=== PATIENT | female | born 2000 | race Caucasian/White ===

== ENCOUNTER 2019-09-20 10:18 | Observation (INO) ==
[2019-09-20] MEDS ORDERED: ONDANSETRON INJ 2 MG/ML 2 ML VIAL IV STA (10:57)
[2019-09-20] MEDS ORDERED: KETOROLAC TROMETHAMINE 15 MG/ML VIAL IV ONE (10:57)
[2019-09-20] MEDS ORDERED: SODIUM CHLORIDE 0.9% 1000ML 2,000 ML IV ONE (10:57)
[2019-09-20 11:06] LABS: Hematocrit (blood only) 43.7 % (37-47); Mean Corpuscular Hemoglobin 29.5 pg (25-34); Mean Corpuscular Hgb Conc 34.3 g/dL (32-36); Mean Corpuscular Volume 85.9 fL (80-100); Mean Platelet Volume 10.5 fL (7.4-10.4); Platelet Count 363 K/uL (130-400); RDW Coefficient of Variation 13.2 % (11.5-14.5); RDW Standard Deviation 41.8 fL (36.4-46.3); Red Blood Count 5.09 M/uL (4.2-5.4); White Blood Count 24.63 K/uL (4.8-10.8)
[2019-09-20 11:22] LABS: Albumin Level 4.3 gm/dl (3.4-5.0); BUN Creatinine Ratio 13.3 (10-20); Creatinine Clr Calc Pharmacy 112.2 ml/min; Est GFR (African American) 133.9; Est GFR (Non-African American) 115.6; Potassium 3.8 mmol/L (3.5-5.1)
[2019-09-20 11:24] LABS: Basophils # (auto) 0.05 K/uL (0-0.2); Basophils % (auto) 0.2 %; Eosinophils # (auto) 0.22 K/uL (0-0.5); Eosinophils % (auto) 0.9 %; Immature Granulocytes # (auto) 0.07 K/uL (0.00-0.02); Immature Granulocytes % (auto) 0.3 %; Lymphocytes # (auto) 3.45 K/uL (1.2-3.4); Monocytes % (auto) 4.1 %; Neutrophils # (auto) 19.84 K/uL (1.4-6.5); Neutrophils % (auto) 80.5 %
[2019-09-20 11:25] LABS: Albumin Globulin Ratio 1.1 (0.9-2); Bilirubin,Total 0.6 mg/dl (0.2-1); Globulin 3.9 gm/dl (2.5-4.0); Total Protein 8.2 gm/dl (6.4-8.2)
[2019-09-20 12:10] LABS: Appearance Urine Clear (Clear); Bilirubin Urine Negative (Negative); Blood Urine Negative (Negative); Color Urine Yellow; Glucose Urine UA Negative (Negative); Ketones Urine Trace (Negative); Leukocyte Esterase Urine Negative (Negative); Nitrite Urine Negative (Negative); Protein Urine Negative (Negative); Specific Gravity Urine 1.021 (1.000-1.030); Urobilinogen Urine Negative (Negative); pH Urine 5.5 (4.5-7.5)
[2019-09-20] MEDS ORDERED: IOVERSOL 100ml IV PRN (12:10)
--- NOTE | 2019-09-20 12:36 | CT Scan Report ---
CT abd pelvis IV con only CLINICAL HISTORY: Epigastric and right lower quadrant abdominal pain. COMPARISON STUDY: None. TECHNIQUE: The patient was scanned in a dynamic helical fashion during intravenous administration of 94 cc of Optiray 320 A dose lowering technique was utilized adhering to the principles of ALARA. CT DOSE: 363.10 mGycm FINDINGS: Lower chest: There are minimal dependent atelectatic changes Liver: The contrast-enhanced liver is normal in size, contour, and attenuation. There is no intrahepa tic biliary ductal dilatation. The hepatic veins and portal veins are patent. Gallbladder: Unremarkable. Spleen: Normal in size and attenuation. Pancreas: Unremarkable. Adrenal glands: Unremarkable. Kidneys: There is symmetric renal cortical enhancement. The kidneys are normal in size without hydron ephrosis. Bowel: There are no transition zones to indicate bowel obstruction. There is no evidence of acute div erticulitis. The appendix is difficult to evaluate given the lack of orally administered contrast and the paucity of intra-abdominal fat. There is no convincing evidence of acute appendicitis. Clinical follow-up is advocated. There is mild fecal retention. Peritoneum: There is trace free pelvic fluid likely physiologic. Is tiny fat-containing umbilical her gael Vasculature: The abdominal aorta is normal in course and caliber. Adenopathy: None. Pelvic viscera: There are bilateral ovarian follicles. There is a droplet of gas within the bladder, likely iatrogenic. Skeletal structures: There is a spinal curvature convex to the left. No destructive lesions are visua lized. IMPRESSION: 1. No evidence of bowel obstruction. No evidence of free air. 2. No evidence of acute diverticulitis 3. Droplet of gas within the bladder likely iatrogenic 4. Suboptimal evaluation of the appendix given the lack of orally administered contrast and the pauci ty of intra-abdominal fat. No convincing evidence of acute appendicitis. 5. Mild fecal retention ACT 112: Negative or not required by law. Electronically signed by: Jony Christine M.D. 09/20/2019 12:35 PM
--- NOTE | 2019-09-20 13:37 | Ultrasound Report ---
PELVIC ULTRASOUND, TRANSABDOMINAL AND TRANSVAGINAL HISTORY: Right lower quadrant abdominal pain. COMPARISON: Abdomen and pelvis CT 09/20/2019. FINDINGS: Uterus: 6.0 x 3.0 x 3.8 cm. The uterus is retroflexed. No masses identified. Endometrial stripe: 3 mm in thickness. Right ovary: Normal in size and demonstrates normal color flow. Left ovary: Normal in size and demonstrates normal color flow. Miscellaneous:Trace pelvic free fluid. IMPRESSION: No significant abnormality identified within the pelvis. ACT 112: Negative or not required by law. Electronically signed by: Richard Roberts M.D. 09/20/2019 1:36 PM
[2019-09-20] MEDS ORDERED: cefOXitin 2,000 MG/60 ML BAG IV STA (13:43)
--- NOTE | 2019-09-20 14:18 | Emergency Department Note ---
Entered by Clare Lopez acting as a scribe for Yonatan Cantrell DO History of Present Illness General Chief complaint: Abdominal Pain Stated complaint: SEVERE ABD PAIN,FEVER Source: patient History of Present Illness Onset (ago): hour(s) (0800 today) Location: abdomen Severity: severe Pain Consistency: + other (worsening) Maximum Pain Intensity: 7 Quality: + other (abdominal pain) Relieved By: + none Exacerbated By: + none Associated symptoms: + nausea/vomiting (Positive nausea. Negative vomiting. ) and + other (Positive abdominal pain. Negative dysuria, hematuria. ) The patient is a 18 year old female presenting to the Emergency Department complaining of worsening abdominal pain starting at 0800 this morning. The patient reports that she was sleeping when she suddenly began to experience severe abdominal pain. She states that this pain is in her upper and lower abdomen. She explains that nothing improves or worsens her pain. She notes that her back hurts and that movement doesnt worsen her pain. She adds that she is nauseous but hasnt vomited. The patient reports that her last bowel movement was yesterday and that it was normal. She states that she began her menstrual cycle 7 days ago. She explains that her menstrual cycle was normal and has since ended. She notes that she has never experienced these symptoms before. The patient denies dysuria, hematuria and vomiting. Home Medications Home Medications Medication Instructions Recorded Confirmed Type norethindrone-e.estradiol-iron 1 tab PO DAILY 09/20/19 09/20/19 History [ ()] Allergies Allergy/AdvReac Type Severity Reaction Status Date / Time AMOXIL Allergy Severe Rash Uncoded 09/20/19 11:33 ZITHROMAX Allergy Severe Rash Uncoded 09/20/19 11:33 Past Med/Surg History Medical History Contraception management Cyst of right ovary (Acute) Depression with anxiety (Acute) Family History Brother Diabetes Father Hyperlipidemia Grandmother (Paternal) History of blood clots Social History Feels Safe at Home: Yes Smoking Status: Never smoker Hx Alcohol Use: No Hx Substance Use: No Review of Systems See HPI for pertinent positives & negatives. and A total of 10 systems reviewed and were otherwise negative Physical Exam Vital Signs Vital Signs - 24 hr 09/20/19 10:33 09/20/19 10:53 09/20/19 10:54 Temperature 36.7 C Temperature Source Oral Pulse Rate 95 H 102 H Pulse Rate from SpO2 Sensor Respiratory Rate 20 20 Respiratory Effort / Characteristics Non-Labored Respiratory Depth Normal Blood Pressure 144/84 H Blood Pressure Mean 104 Pulse Oximetry 96 97 Oxygen Delivery Method Room Air Room Air Sepsis Recent Fever Within 48 Hours No Sepsis Action Taken by Nursing No Action Required 09/20/19 11:00 09/20/19 11:15 09/20/19 11:30 Temperature Temperature Source Pulse Rate 82 77 87 Pulse Rate from SpO2 Sensor Respiratory Rate 18 23 18 Respiratory Effort / Characteristics Respiratory Depth Blood Pressure Blood Pressure Mean Pulse Oximetry Oxygen Delivery Method Sepsis Recent Fever Within 48 Hours Sepsis Action Taken by Nursing 09/20/19 11:45 09/20/19 12:16 09/20/19 12:18 Temperature Temperature Source Pulse Rate 86 82 84 Pulse Rate from SpO2 Sensor 81 Respiratory Rate 23 19 28 H Respiratory Effort / Characteristics Respiratory Depth Blood Pressure 114/66 Blood Pressure Mean 84 Pulse Oximetry 99 Oxygen Delivery Method Sepsis Recent Fever Within 48 Hours Sepsis Action Taken by Nursing 09/20/19 12:19 09/20/19 12:30 09/20/19 12:31 Temperature Temperature Source Pulse Rate 75 70 74 Pulse Rate from SpO2 Sensor 75 72 76 Respiratory Rate 20 20 20 Respiratory Effort / Characteristics Respiratory Depth Blood Pressure 110/67 Blood Pressure Mean 82 Pulse Oximetry 99 100 100 Oxygen Delivery Method Sepsis Recent Fever Within 48 Hours Sepsis Action Taken by Nursing 09/20/19 12:45 09/20/19 13:00 09/20/19 13:34 Temperature Temperature Source Pulse Rate 82 82 Pulse Rate from SpO2 Sensor 81 86 80 Respiratory Rate 19 21 Respiratory Effort / Characteristics Respiratory Depth Blood Pressure 109/65 116/63 Blood Pressure Mean 82 76 Pulse Oximetry 100 99 98 Oxygen Delivery Method Sepsis Recent Fever Within 48 Hours Sepsis Action Taken by Nursing 09/20/19 13:35 Temperature Temperature Source Pulse Rate 74 Pulse Rate from SpO2 Sensor 74 Respiratory Rate 21 Respiratory Effort / Characteristics Respiratory Depth Blood Pressure 108/68 Blood Pressure Mean 79 Pulse Oximetry 99 Oxygen Delivery Method Sepsis Recent Fever Within 48 Hours Sepsis Action Taken by Nursing GENERAL: Patient is crying, tearful and wearing hospital gown. Alert, well nourished, no distress, non-toxic EYE EXAM: normal conjunctiva, PERRL and EOM's grossly intact OROPHARYNX: no exudate, no erythema, lips, buccal mucosa, and tongue normal and mucous membranes are moist NECK: supple, no nuchal rigidity, no adenopathy, non-tender LUNGS: Clear to auscultation. Normal chest wall mechanics HEART: no murmurs, S1 normal and S2 normal ABDOMEN: Tender to palpation in RLQ and epigastric region. Abdomen soft, normo- active bowel sounds, no masses, no rebound or guarding. BACK: Back is symmetrical on inspection and there is no deformity, no midline tenderness, no CVA tenderness. SKIN: no rashes and no bruising UPPER EXTREMITIES: upper extremities are grossly normal. LOWER EXTREMITIES: No pitting edema. NEURO EXAM: Normal sensorium, cranial nerves II-XII grossly intact, normal spee ch, no gross weakness of arms, no gross weakness of legs. Course Course ED COURSE: Vital signs were reviewed and showed hypertension. The patients medical record was reviewed The above diagnostic studies were performed and reviewed. ED treatments and interventions as stated above. 1045: The patient was evaluated in room B7. A complete history and physical examination was performed. 1211: I reevaluated the patient at this time. 1338: I updated the patient and her family on the patient's imaging studies at this time. 1341: I discussed the patient's case with Yani Culp PA-C. Dr. Jacinto Ag [facility] general surgeon will evaluate the patient for further management. 1345: Upon reevaluation, I discussed my findings with the patient and she understands and agrees with the treatment plan. Based on the patients age, coexisting illnesses, exam and lab findings the decision to treat as an inpatient was made. The patient remained stable while under my care. The patient will be evaluated for further management. Administered Medications Ioversol (Optiray 320 100ml) 94 ml IV ONCE PRN PRN Reason: Interaction Checking Stop: 09/24/19 12:09 Last Admin: 09/20/19 12:10 Dose: 94 ml Documented by: [id number] Discontinued Medications Sodium Chloride (Nss 1000ml) 2,000 mls @ 999 mls/hr IV .Q2H1M ONE Stop: 09/20/19 12:57 Last Admin: 09/20/19 11:54 Dose: 999 mls/hr Documented by: [id number] Ketorolac Tromethamine (Toradol) 15 mg IV NOW ONE Stop: 09/20/19 10:58 Last Admin: 09/20/19 11:54 Dose: 15 mg Documented by: [id number] Ondansetron HCl (Zofran) 4 mg IV NOW STA Stop: 09/20/19 10:58 Last Admin: 09/20/19 11:54 Dose: 4 mg Documented by: [id number] Medical Decision Making Differential Diagnosis Differential diagnoses includes but is not limited to gastritis, peptic ulcer disease, GERD, gallbladder disease, pancreatitis, small bowel obstruction, acute coronary syndrome, pericarditis, ischemic bowel, irritable bowel disease, irritable bowel syndrome, appendicitis, diverticulitis, malignancy, hernia, ur inary tract infection, torsion, /ectopic , perforation, trauma, infectious. Medical Records Attestation: I reviewed the patient's medical records. Home Medications Current Medication List: was personally reviewed by me Laboratory Data Attestation: I reviewed the patient's lab results. Result diagrams: 09/20/19 10:50 09/20/19 10:50 Lab Results 09/20/19 09/20/19 09/20/19 Range/Units 10:50 10:50 11:59 WBC 24.63 H (4.8-10.8) K/uL RBC 5.09 (4.2-5.4) M/uL Hgb 15.0 (12.0-16.0) g/dL Hct 43.7 (37-47) % MCV 85.9 (80-100) fL MCH 29.5 (25-34) pg MCHC 34.3 (32-36) g/dL RDW Std Deviation 41.8 (36.4-46.3) fL RDW Coeff of Gertrude 13.2 (11.5-14.5) % Plt Count 363 (130-400) K/uL MPV 10.5 H (7.4-10.4) fL Immature Gran % (Auto) 0.3 % Neut % (Auto) 80.5 % Lymph % (Auto) 14.0 % [place] % (Auto) 4.1 % Eos % (Auto) 0.9 % Baso % (Auto) 0.2 % Immature Gran # (Auto) 0.07 H (0.00-0.02) K/uL Neut # (Auto) 19.84 H (1.4-6.5) K/uL Lymph # (Auto) 3.45 H (1.2-3.4) K/uL [place] # (Auto) 1.00 H (0.11-0.59) K/uL Eos # (Auto) 0.22 (0-0.5) K/uL Baso # (Auto) 0.05 (0-0.2) K/uL Sodium 137 (136-145) mmol/L Potassium 3.8 (3.5-5.1) mmol/L Chloride 108 H (98-107) mmol/L Carbon Dioxide 23 (21-32) mmol/L Anion Gap 6.0 (3-11) BUN 10 (7-18) mg/dl Creatinine 0.75 (0.6-1.2) mg/dl Est Cr Clr Drug Dosing 112.2 ml/min Est GFR ( Amer) 133.9 Est GFR (Non-Af Amer) 115.6 BUN/Creatinine Ratio 13.3 (10-20) Glucose 85 (70-99) mg/dl Calcium 9.0 (8.5-10.1) mg/dl Total Bilirubin 0.6 (0.2-1) mg/dl AST 17 (15-37) U/L ALT 22 (12-78) U/L Alkaline Phosphatase 75 (45-117) U/L Total Protein 8.2 (6.4-8.2) gm/dl Albumin 4.3 (3.4-5.0) gm/dl Globulin 3.9 (2.5-4.0) gm/dl Albumin/Globulin Ratio 1.1 (0.9-2) Lipase 157 (73-393) U/L Urine Color Yellow Urine Appearance Clear (Clear) Urine pH 5.5 (4.5-7.5) Ur Specific [place] 1.021 (1.000-1.030) Urine Protein Negative (Negative) Urine Glucose (UA) Negative (Negative) Urine Ketones Trace H (Negative) Urine Blood Negative (Negative) Urine Nitrite Negative (Negative) Urine Bilirubin Negative (Negative) Urine Urobilinogen Negative (Negative) Ur Leukocyte Esterase Negative (Negative) POC Ur Test (NEG) 09/20/19 Range/Units 11:59 WBC (4.8-10.8) K/uL RBC (4.2-5.4) M/uL Hgb (12.0-16.0) g/dL Hct (37-47) % MCV (80-100) fL MCH (25-34) pg MCHC (32-36) g/dL RDW Std Deviation (36.4-46.3) fL RDW Coeff of Gertrude (11.5-14.5) % Plt Count (130-400) K/uL MPV (7.4-10.4) fL Immature Gran % (Auto) % Neut % (Auto) % Lymph % (Auto) % [place] % (Auto) % Eos % (Auto) % Baso % (Auto) % Immature Gran # (Auto) (0.00-0.02) K/uL Neut # (Auto) (1.4-6.5) K/uL Lymph # (Auto) (1.2-3.4) K/uL [place] # (Auto) (0.11-0.59) K/uL Eos # (Auto) (0-0.5) K/uL Baso # (Auto) (0-0.2) K/uL Sodium (136-145) mmol/L Potassium (3.5-5.1) mmol/L Chloride (98-107) mmol/L Carbon Dioxide (21-32) mmol/L Anion Gap (3-11) BUN (7-18) mg/dl Creatinine (0.6-1.2) mg/dl Est Cr Clr Drug Dosing ml/min Est GFR ( Amer) Est GFR (Non-Af Amer) BUN/Creatinine Ratio (10-20) Glucose (70-99) mg/dl Calcium (8.5-10.1) mg/dl Total Bilirubin (0.2-1) mg/dl AST (15-37) U/L ALT (12-78) U/L Alkaline Phosphatase (45-117) U/L Total Protein (6.4-8.2) gm/dl Albumin (3.4-5.0) gm/dl Globulin (2.5-4.0) gm/dl Albumin/Globulin Ratio (0.9-2) Lipase (73-393) U/L Urine Color Urine Appearance (Clear) Urine pH (4.5-7.5) Ur Specific [place] (1.000-1.030) Urine Protein (Negative) Urine Glucose (UA) (Negative) Urine Ketones (Negative) Urine Blood (Negative) Urine Nitrite (Negative) Urine Bilirubin (Negative) Urine Urobilinogen (Negative) Ur Leukocyte Esterase (Negative) POC Ur Test NEG (NEG) Imaging Data Radiologist's Impression: Radiology results as stated below per my review and the radiologist's interpretation: CT abd pelvis IV con only CLINICAL HISTORY: Epigastric and right lower quadrant abdominal pain. COMPARISON STUDY: None. TECHNIQUE: The patient was scanned in a dynamic helical fashion during intravenous administration of 94 cc of Optiray 320 A dose lowering technique was utilized adhering to the principles of ALARA. CT DOSE: 363.10 mGycm FINDINGS: Lower chest: There are minimal dependent atelectatic changes Liver: The contrast-enhanced liver is normal in size, contour, and attenuation. There is no intrahepatic biliary ductal dilatation. The hepatic veins and portal veins are patent. Gallbladder: Unremarkable. Spleen: Normal in size and attenuation. Pancreas: Unremarkable. Adrenal glands: Unremarkable. Kidneys: There is symmetric renal cortical enhancement. The kidneys are normal in size without hydronephrosis. Bowel: There are no transition zones to indicate bowel obstruction. There is no evidence of acute diverticulitis. The appendix is difficult to evaluate given the lack of orally administered contrast and the paucity of intra-abdominal fat. There is no convincing evidence of acute appendicitis. Clinical follow-up is advocated. There is mild fecal retention. Peritoneum: There is trace free pelvic fluid likely physiologic. Is tiny fat- containing umbilical hernia Vasculature: The abdominal aorta is normal in course and caliber. Adenopathy: None. Pelvic viscera: There are bilateral ovarian follicles. There is a droplet of gas within the bladder, likely iatrogenic. Skeletal structures: There is a spinal curvature convex to the left. No destructive lesions are visualized. IMPRESSION: 1. No evidence of bowel obstruction. No evidence of free air. 2. No evidence of acute diverticulitis 3. Droplet of gas within the bladder likely iatrogenic 4. Suboptimal evaluation of the appendix given the lack of orally administered contrast and the paucity of intra-abdominal fat. No convincing evidence of acute appendicitis. 5. Mild fecal retention ACT 112: Negative or not required by law. Electronically signed by: Jony Christine M.D. 09/20/2019 12:35 PM PELVIC ULTRASOUND, TRANSABDOMINAL AND TRANSVAGINAL HISTORY: Right lower quadrant abdominal pain. COMPARISON: Abdomen and pelvis CT 09/20/2019. FINDINGS: Uterus: 6.0 x 3.0 x 3.8 cm. The uterus is retroflexed. No masses identified. Endometrial stripe: 3 mm in thickness. Right ovary: Normal in size and demonstrates normal color flow. Left ovary: Normal in size and demonstrates normal color flow. Miscellaneous:Trace pelvic free fluid. IMPRESSION: No significant abnormality identified within the pelvis. ACT 112: Negative or not required by law. Electronically signed by: Richard Roberts M.D. 09/20/2019 1:36 PM Blood Pressure Blood Pressure Findings: Elevated blood pressure Blood Pressure Disposition: further management by hospitalist KERRY Narrative Patient is a 18-year-old female who presents the ER for right lower quadrant abdominal pain associate with epigastric abdominal pain. She notes this started around 8 AM this morning. She admits to nausea. Last menstrual period was about 7 days ago. She denies any previous abdominal surgeries. No vaginal bleeding or vaginal discharge. IV was established blood work was obtained and showed a leukocytosis of 24,000. No significant anemia. BMP along with LFTs bilirubin and lipase was unremarkable. UA was negative. was negative. CT abdomen pelvis was initially read as unremarkable and unable to visualize the appendix. Consequently to this ultrasound of the pelvis was ordered and repeat CAT scan with oral and IV contrast. Following the result of the ultrasound of the abdomen pelvis which was unremarkable that radiologist did review the CT in comparison and did find the appendix. This was again reviewed by 3 separate radiologist and all believe that this is acute appendicitis as it measured 8 mm. Patient was given IV Toradol IV Zofran, IV fluids and IV cefoxitin. She is updated bedside discussed with general surgery for acute appendicitis. Impression & Plan Acute appendicitis, Abdominal pain, Leukocytosis Discharge Plan Visit Data Chief Complaint: Abdominal Pain Stated Complaint: SEVERE ABD PAIN,FEVER ED Provider: Yonatan Cantrell Discharge Problem: Acute appendicitis, Abdominal pain, Leukocytosis Patient Disposition: Being Evaluated by Surgeon Forms Stand Alone Forms: [facility] Prescriptions Prescriptions: No Action norethindrone-e.estradiol-iron [ 1.5/30 (28)] 1.5 mg-30 mcg (21)/75 mg (7) tablet 1 tab PO DAILY RF: 0 Referrals Referrals: Estrella Esquivel MD [Primary Care Provider] - Discharge Problem: Acute appendicitis Qualifiers: Acute appendicitis type: unspecified acute appendicitis type Qualified Code(s): K35.80 - Unspecified acute appendicitis Abdominal pain Qualifiers: Abdominal location: unspecified location Qualified Code(s): R10.9 - Unspecified abdominal pain Leukocytosis Qualifiers: Leukocytosis type: unspecified Qualified Code(s): D72.829 - Elevated white blood cell count, unspecified The scribe's documentation has been prepared under my direction and personally reviewed by me in its entirety. I confirm that the note above accurately reflects all work, treatment, procedures, and medical decision making performed by me.
--- NOTE | 2019-09-20 14:37 | History & Physical Report ---
Date of Service September 20, 2019 Assessment & Plan (1) Acute appendicitis: 18 year-old female with <24 hour history of abdominal pain with associated nausea. CT scan of abd/pelvis with IV contrast showing possible early acute appendicitis with appendix measuring 8 mm with equivocal appendicolith. Leukocytosis of 24K. Abdomen soft, nondistended, tender in RLQ with guarding in RLQ. Plan: Plan to take patient to operating room for laparoscopic appendectomy possible open. Patient and family informed of procedure and risks and informed consent obtained Given allergy to penicillin will give IV Cipro preop Continue IV fluids Pain management as needed keep npo for OR Will go to med/surg post-op Dr. Casey has seen and examined pt, agrees with above. I ( Yady Casey MD ) reviewed pt's H/P labs, CT scan with pt and her father, IMP: acute appendicitis, I recommend to do laparoscopic appendectomy, possible open, D/W benefits, risks and alternatives of the surgery, the risks - infection, bleeding, abscess, injury bowel, they understood, pt signed consent, I answered all questions, cipro 400mg IV now, History of Present Illness Chief Complaint: abdominal pain Primary Care Provider: Estrella Esquivel MD Estrellita is a pleasant 18 year-old female who presented to emergency department with complaint of abdominal pain that started this morning. States pain was midline and upper and then now mostly located in the right lower abdomen. Denies of similar pain in the past. Last bowel movement was yesterday and normal. Associated nausea but no vomiting. Denies of any fever, chills, or sweats. ER work-up included labs which showed leukocytosis of 24k CT scan of abdomen and pelvis with IV contrast showing moderate fecal retention, original read could not visualize appendix raza well given lack of oral contrast however re-read showed fluid filled blind end structure presacral with equivocal appendicolith. Given leukocytosis and RLQ, this may reflect early acute appendicitis. She also had a transabdominal and transvaginal pelvic ultrasound which was unremarkable. Allergies Allergy/AdvReac Type Severity Reaction Status Date / Time AMOXIL Allergy Severe Rash Uncoded 09/20/19 11:33 ZITHROMAX Allergy Severe Rash Uncoded 09/20/19 11:33 Home Medications Home Medications Medication Instructions Recorded Confirmed Type norethindrone-e.estradiol-iron 1 tab PO DAILY 09/20/19 09/20/19 History [ (28)] Past Med/Surg History Medical History Contraception management Cyst of right ovary (Acute) Depression with anxiety (Acute) Surgical History H/O tooth extraction Family History Brother Diabetes Father Hyperlipidemia Grandmother (Paternal) History of blood clots Social History Preferred Language: Icelandic Communication Ability: Effective Beliefs That Will Affect Care: None Current Living Situation: Alone Current Living Situation Comment: APARTMENT Other Information That Helps Us Care for You: No Feels Safe at Home: Yes Safety Concerns: Feels Safe At This Time Smoking Status: Never smoker Hx Alcohol Use: Yes Alcohol type: beer and wine Hx Substance Use: No Review of Systems Review of Systems: All systems reviewed & are unremarkable except as noted in HPI & below Physical Exam Constitutional: WD/WN, vitals as above no acute distress Respiratory: normal respiratory effort, lungs clear to auscultation Cardiovascular: RRR, no murmur, no edema Gastrointestinal (Abdomen): Inspection/Auscultation: abdomen normal to inspection; abdomen not distended Percussion/Palpation: + abdomen tender (RLQ), + guarding (RLQ) and abdomen soft; abdomen not rigid Skin: no rashes, warm and dry Psychiatric: A+Ox3, euthymic affect Results & Data Vital Signs (Past 12 Hours) Vital Signs Temp Pulse Resp BP Pulse Ox 09/20/19 13:35 74 21 108/68 99 09/20/19 13:34 82 21 98 09/20/19 13:00 116/63 99 09/20/19 12:45 82 19 109/65 100 09/20/19 12:31 74 20 100 09/20/19 12:30 70 20 110/67 100 09/20/19 12:19 75 20 99 09/20/19 12:18 84 28 H 114/66 99 09/20/19 12:16 82 19 09/20/19 11:45 86 23 09/20/19 11:30 87 18 09/20/19 11:15 77 23 09/20/19 11:00 82 18 09/20/19 10:54 97 09/20/19 10:53 102 H 20 09/20/19 10:33 36.7 C 95 H 20 144/84 H 96 Laboratory Results 09/20/19 09/20/19 09/20/19 Range/Units 11:59 11:59 10:50 WBC (4.8-10.8) K/uL RBC (4.2-5.4) M/uL Hgb (12.0-16.0) g/dL Hct (37-47) % MCV (80-100) fL MCH (25-34) pg MCHC (32-36) g/dL RDW Std Deviation (36.4-46.3) fL RDW Coeff of Gertrude (11.5-14.5) % Plt Count (130-400) K/uL MPV (7.4-10.4) fL Immature Gran % (Auto) % Neut % (Auto) % Lymph % (Auto) % [place] % (Auto) % Eos % (Auto) % Baso % (Auto) % Immature Gran # (Auto) (0.00-0.02) K/uL Neut # (Auto) (1.4-6.5) K/uL Lymph # (Auto) (1.2-3.4) K/uL [place] # (Auto) (0.11-0.59) K/uL Eos # (Auto) (0-0.5) K/uL Baso # (Auto) (0-0.2) K/uL Sodium 137 (136-145) mmol/L Potassium 3.8 (3.5-5.1) mmol/L Chloride 108 H (98-107) mmol/L Carbon Dioxide 23 (21-32) mmol/L Anion Gap 6.0 (3-11) BUN 10 (7-18) mg/dl Creatinine 0.75 (0.6-1.2) mg/dl Est Cr Clr Drug Dosing 112.2 ml/min Est GFR ( Amer) 133.9 Est GFR (Non-Af Amer) 115.6 BUN/Creatinine Ratio 13.3 (10-20) Glucose 85 (70-99) mg/dl Calcium 9.0 (8.5-10.1) mg/dl Total Bilirubin 0.6 (0.2-1) mg/dl AST 17 (15-37) U/L ALT 22 (12-78) U/L Alkaline Phosphatase 75 (45-117) U/L Total Protein 8.2 (6.4-8.2) gm/dl Albumin 4.3 (3.4-5.0) gm/dl Globulin 3.9 (2.5-4.0) gm/dl Albumin/Globulin Ratio 1.1 (0.9-2) Lipase 157 (73-393) U/L Urine Color Yellow Urine Appearance Clear (Clear) Urine pH 5.5 (4.5-7.5) Ur Specific [place] 1.021 (1.000-1.030) Urine Protein Negative (Negative) Urine Glucose (UA) Negative (Negative) Urine Ketones Trace H (Negative) Urine Blood Negative (Negative) Urine Nitrite Negative (Negative) Urine Bilirubin Negative (Negative) Urine Urobilinogen Negative (Negative) Ur Leukocyte Esterase Negative (Negative) POC Ur Test NEG (NEG) 09/20/19 Range/Units 10:50 WBC 24.63 H (4.8-10.8) K/uL RBC 5.09 (4.2-5.4) M/uL Hgb 15.0 (12.0-16.0) g/dL Hct 43.7 (37-47) % MCV 85.9 (80-100) fL MCH 29.5 (25-34) pg MCHC 34.3 (32-36) g/dL RDW Std Deviation 41.8 (36.4-46.3) fL RDW Coeff of Gertrude 13.2 (11.5-14.5) % Plt Count 363 (130-400) K/uL MPV 10.5 H (7.4-10.4) fL Immature Gran % (Auto) 0.3 % Neut % (Auto) 80.5 % Lymph % (Auto) 14.0 % [place] % (Auto) 4.1 % Eos % (Auto) 0.9 % Baso % (Auto) 0.2 % Immature Gran # (Auto) 0.07 H (0.00-0.02) K/uL Neut # (Auto) 19.84 H (1.4-6.5) K/uL Lymph # (Auto) 3.45 H (1.2-3.4) K/uL [place] # (Auto) 1.00 H (0.11-0.59) K/uL Eos # (Auto) 0.22 (0-0.5) K/uL Baso # (Auto) 0.05 (0-0.2) K/uL Sodium (136-145) mmol/L Potassium (3.5-5.1) mmol/L Chloride (98-107) mmol/L Carbon Dioxide (21-32) mmol/L Anion Gap (3-11) BUN (7-18) mg/dl Creatinine (0.6-1.2) mg/dl Est Cr Clr Drug Dosing ml/min Est GFR ( Amer) Est GFR (Non-Af Amer) BUN/Creatinine Ratio (10-20) Glucose (70-99) mg/dl Calcium (8.5-10.1) mg/dl Total Bilirubin (0.2-1) mg/dl AST (15-37) U/L ALT (12-78) U/L Alkaline Phosphatase (45-117) U/L Total Protein (6.4-8.2) gm/dl Albumin (3.4-5.0) gm/dl Globulin (2.5-4.0) gm/dl Albumin/Globulin Ratio (0.9-2) Lipase (73-393) U/L Urine Color Urine Appearance (Clear) Urine pH (4.5-7.5) Ur Specific [place] (1.000-1.030) Urine Protein (Negative) Urine Glucose (UA) (Negative) Urine Ketones (Negative) Urine Blood (Negative) Urine Nitrite (Negative) Urine Bilirubin (Negative) Urine Urobilinogen (Negative) Ur Leukocyte Esterase (Negative) POC Ur Test (NEG) Diagnostic Findings Addendum: The examination was reviewed with 2 fellow radiologists. On reviewing the images, a dilated fluid-filled blind-ending structure is visualized in the presacral region. This measures 8 mm in diameter and is felt to represent a mildly dilated fluid-filled appendix. In addition there is an equivocal appendicolith. Given history of pain and elevated white count, the findings are felt to be indicative of an early acute appendicitis. Dr. Carvalho was notified of this reinterpretation at 1:37 PM. Electronically signed by: Jony Christine M.D. 09/20/2019 1:[address] abd pelvis IV con only CLINICAL HISTORY: Epigastric and right lower quadrant abdominal pain. COMPARISON STUDY: None. TECHNIQUE: The patient was scanned in a dynamic helical fashion during intravenous administration of 94 cc of Optiray 320 A dose lowering technique was utilized adhering to the principles of ALARA. CT DOSE: 363.10 mGycm FINDINGS: Lower chest: There are minimal dependent atelectatic changes Liver: The contrast-enhanced liver is normal in size, contour, and attenuation. There is no intrahepatic biliary ductal dilatation. The hepatic veins and portal veins are patent. Gallbladder: Unremarkable. Spleen: Normal in size and attenuation. Pancreas: Unremarkable. Adrenal glands: Unremarkable. Kidneys: There is symmetric renal cortical enhancement. The kidneys are normal in size without hydronephrosis. Bowel: There are no transition zones to indicate bowel obstruction. There is no evidence of acute diverticulitis. The appendix is difficult to evaluate given the lack of orally administered contrast and the paucity of intra-abdominal fat. There is no convincing evidence of acute appendicitis. Clinical follow-up is advocated. There is mild fecal retention. Peritoneum: There is trace free pelvic fluid likely physiologic. Is tiny fat- containing umbilical hernia Vasculature: The abdominal aorta is normal in course and caliber. Adenopathy: None. Pelvic viscera: There are bilateral ovarian follicles. There is a droplet of gas within the bladder, likely iatrogenic. Skeletal structures: There is a spinal curvature convex to the left. No destructive lesions are visualized. IMPRESSION: 1. No evidence of bowel obstruction. No evidence of free air. 2. No evidence of acute diverticulitis 3. Droplet of gas within the bladder likely iatrogenic 4. Suboptimal evaluation of the appendix given the lack of orally administered contrast and the paucity of intra-abdominal fat. No convincing evidence of acute appendicitis. 5. Mild fecal retention PELVIC ULTRASOUND, TRANSABDOMINAL AND TRANSVAGINAL HISTORY: Right lower quadrant abdominal pain. COMPARISON: Abdomen and pelvis CT 09/20/2019. FINDINGS: Uterus: 6.0 x 3.0 x 3.8 cm. The uterus is retroflexed. No masses identified. Endometrial stripe: 3 mm in thickness. Right ovary: Normal in size and demonstrates normal color flow. Left ovary: Normal in size and demonstrates normal color flow. Miscellaneous:Trace pelvic free fluid. IMPRESSION: No significant abnormality identified within the pelvis. Code Status & VTE Plan VTE Prophylaxis Plan VTE Prophylaxis will be ordered: Yes (1) Acute appendicitis Acute appendicitis type: unspecified acute appendicitis type Qualified Code(s): K35.80 - Unspecified acute appendicitis
--- NOTE | 2019-09-20 14:54 | Anesthesiology Consultation ---
Date of Service September 20, 2019 Assessment & Plan Chart Review Chart Review: Acceptable Risk for Surgery and Patient NOT seen in Pre Admission Testing Consults Requested none ASA ASA2 Proposed Anesthesia Anesthesia Type: General Risk / Benefits Reviewed With: PT / POA / Parent / Guardian, Accepts Plan and Informed Consent Obtained History Surgery Operation Date: 09/20/19 15:30 Proposed Procedures p Laparoscopic Appendectomy - Yady Casey MD Height/Weight Height: 5 ft 6 in Weight: 58.9 kg Allergies Allergy/AdvReac Type Severity Reaction Status Date / Time AMOXIL Allergy Severe Rash Uncoded 09/20/19 11:33 ZITHROMAX Allergy Severe Rash Uncoded 09/20/19 11:33 Medications Home Medications Medication Instructions Recorded Confirmed Last Taken norethindrone-e.estradiol-iron 1 tab PO DAILY 09/20/19 09/20/19 Unknown [June FE ()] oxycodone-acetaminophen [Percocet] 1 tab PO Q6H PRN #10 tab 09/21/19 Unknown Active Medications Generic Name Dose Route Start Last Admin Trade Name Freq PRN Reason Stop Dose Admin Docusate Sodium 100 mg 09/21/19 09:00 09/21/19 09:08 Colace PO 10/21/19 08:59 100 mg BID SUSAN Administration Ciprofloxacin 400 mg in 200 mls @ 100 mls/hr 09/20/19 18:00 09/21/19 07:46 Cipro IV 09/22/19 17:59 Infused Q12H SUSAN Infusion Protocol Lactated Ringer's 1,000 mls @ 80 mls/hr 09/20/19 18:00 09/21/19 07:45 Lr IV 10/20/19 17:59 80 mls/hr .[id number] SUSAN Administration Ibuprofen 600 mg 09/21/19 08:44 09/21/19 09:08 Motrin PO 10/21/19 08:43 600 mg Q6H PRN Administration Pain Morphine Sulfate 2 mg 09/20/19 17:45 09/21/19 04:47 Morphine Sulfate IV 10/04/19 17:44 2 mg Q4H PRN Administration Pain Ondansetron HCl 4 mg 09/20/19 16:35 09/20/19 18:44 Zofran IV 10/20/19 16:34 4 mg Q6H PRN Administration Nausea Oxycodone/Acetaminophen 1 tab 09/20/19 17:45 09/21/19 05:48 Percocet 5mg/325mg PO 10/04/19 17:44 1 tab Q4H PRN Administration Pain Past Medical History Medical History Contraception management Cyst of right ovary (Acute) Depression with anxiety (Acute) Past Family History Family History Brother Diabetes Father Hyperlipidemia Grandmother (Paternal) History of blood clots Past Surgical History Surgical History H/O tooth extraction Social History Smoking Status: Never smoker Hx Alcohol Use: Yes Alcohol type: beer and wine alcohol intake frequency: a few times a month Alcohol Intake Frequency Comment: WEEKENDS Hx Substance Use: No Physical Exam Vital Signs Last Vital Signs Temp 36.9 C 09/21/19 11:55 Pulse 60 09/21/19 11:55 Resp 16 09/21/19 11:55 BP 108/66 09/21/19 11:55 Pulse Ox 98 09/21/19 11:55 Testing Laboratory Results 09/21/19 04:37 09/20/19 10:50 Urine Color Yellow 09/20/19 11:59 Urine Appearance Clear (Clear) 09/20/19 11:59 Urine pH 5.5 (4.5-7.5) 09/20/19 11:59 Ur Specific [place] 1.021 (1.000-1.030) 09/20/19 11:59 Urine Protein Negative (Negative) 09/20/19 11:59 Urine Glucose (UA) Negative (Negative) 09/20/19 11:59 Urine Ketones Trace (Negative) H 09/20/19 11:59 Urine Nitrite Negative (Negative) 09/20/19 11:59 Ur Leukocyte Esterase Negative (Negative) 09/20/19 11:59 09/20/19 11:59 POC Ur Test NEG
[2019-09-20] MEDS ORDERED: CIPROFLOXACIN 400MG / 200ML D5W IV ONE (15:00)
--- NOTE | 2019-09-20 15:19 | History & Physical Bridge Note ---
Date of Service September 20, 2019 History & Physical Bridge Note I have examined the patient, reviewed the History & Physical and in the interval since the performance of the History & Physical I have noted the following changes of clinical significance: no changes noted
[2019-09-20] MEDS ORDERED: BACITRACIN OINT 15 GM TUBE ONE (15:21)
[2019-09-20] MEDS ORDERED: BUPIVACAINE 0.5 % 5 MG/1 ML MPF 30ML VIAL ONE (15:21)
[2019-09-20] MEDS ORDERED: LIDOCAINE HCL 1% 20 ML VIAL ONE (15:21)
[2019-09-20] MEDS ORDERED: CIPROFLOXACIN 400 MG/200 ML BAG IV SCH (15:30)
[2019-09-20] MEDS ORDERED: MIDAZOLAM HCL 1 MG/ML 2ML VIAL ONE (15:34)
[2019-09-20] MEDS ORDERED: PHENYLEPHRINE 100MCG/ML 5ML SYR IV PRN (15:35)
[2019-09-20] MEDS ORDERED: ePHEDrine sulfate 50 MG/ML AMP IV PRN (15:35)
[2019-09-20] MEDS ORDERED: LABETALOL HCL IV 5 MG/ML 20ML IV PRN (15:35)
[2019-09-20] MEDS ORDERED: ONDANSETRON INJ 2 MG/ML 2 ML VIAL IV PRN ×2 (15:35→16:35)
[2019-09-20] MEDS ORDERED: HYDROmorphone INJ 1 MG/ML SYRINGE IV PRN (15:35)
[2019-09-20] MEDS ORDERED: ATROPINE SULFATE 0.1 MG/ML 10ML SYR IV PRN (15:35)
[2019-09-20] MEDS ORDERED: MEPERIDINE HCL 25 MG/ML CARP IV PRN (15:35)
[2019-09-20] MEDS ORDERED: fentaNYL citrate 100 MCG/2 ML VIAL ONE (15:35)
--- NOTE | 2019-09-20 15:38 | Anesthesiology Consultation ---
Date of Service September 20, 2019 Assessment & Plan (1) Encounter for pre-operative examination: Chart Review Chart Review: Acceptable Risk for Surgery and Patient NOT seen in Pre Admission Testing Consults Requested none History Surgery Operation Date: 09/20/19 15:30 Proposed Procedures p Laparoscopic Appendectomy - Yady Casey MD Height/Weight Height: 5 ft 6 in Weight: 58.9 kg Allergies Allergy/AdvReac Type Severity Reaction Status Date / Time AMOXIL Allergy Severe Rash Uncoded 09/20/19 11:33 ZITHROMAX Allergy Severe Rash Uncoded 09/20/19 11:33 Medications Home Medications Medication Instructions Recorded Confirmed Last Taken norethindrone-e.estradiol-iron 1 tab PO DAILY 09/20/19 09/20/19 Unknown [ ()] Active Medications Generic Name Dose Route Start Last Admin Trade Name Freq PRN Reason Stop Dose Admin Ioversol 94 ml 09/20/19 12:10 09/20/19 12:10 Optiray 320 100ml IV 09/24/19 12:09 94 ml ONCE PRN Administration Interaction Checking NPO Date Last Intake of Fluids: 09/20/19 Time Last Intake of Fluids: 00:30 Date Last Intake of Solids: 09/20/19 Time Last Intake of Solids: 00:30 Past Medical History Medical History Contraception management Cyst of right ovary (Acute) Depression with anxiety (Acute) Past Family History Family History Brother Diabetes Father Hyperlipidemia Grandmother (Paternal) History of blood clots Past Surgical History Surgical History H/O tooth extraction Social History Smoking Status: Never smoker Hx Alcohol Use: Yes Alcohol type: beer and wine alcohol intake frequency: a few times a month Alcohol Intake Frequency Comment: WEEKENDS Hx Substance Use: No Physical Exam Vital Signs Last Vital Signs Temp 36.9 C 09/20/19 15:23 Pulse 76 09/20/19 15:23 Resp 18 09/20/19 15:23 BP 120/73 09/20/19 15:23 Pulse Ox 97 09/20/19 15:23 Testing Laboratory Results 09/20/19 10:50 09/20/19 10:50 Urine Color Yellow 09/20/19 11:59 Urine Appearance Clear (Clear) 09/20/19 11:59 Urine pH 5.5 (4.5-7.5) 09/20/19 11:59 Ur Specific [place] 1.021 (1.000-1.030) 09/20/19 11:59 Urine Protein Negative (Negative) 09/20/19 11:59 Urine Glucose (UA) Negative (Negative) 09/20/19 11:59 Urine Ketones Trace (Negative) H 09/20/19 11:59 Urine Nitrite Negative (Negative) 09/20/19 11:59 Ur Leukocyte Esterase Negative (Negative) 09/20/19 11:59 09/20/19 11:59 POC Ur Test NEG
[2019-09-20] MEDS ORDERED: DEXAMETHASONE SOD INJ 4 MG/ML VIAL ONE (16:12)
[2019-09-20] MEDS ORDERED: SUCCINYLCHOLINE 100MG/5ML SYR ONE (16:12)
[2019-09-20] MEDS ORDERED: LIDOCAINE HCL 2% 2 ML VIAL/AMP(20MG/ML) INFIL ONE (16:12)
[2019-09-20] MEDS ORDERED: ROCURONIUM BROMIDE 10 MG/ML 5 ML VIAL ONE (16:13)
[2019-09-20] MEDS ORDERED: KETOROLAC 30 MG/ML VIAL ONE (16:13)
[2019-09-20] MEDS ORDERED: GLYCOPYRROLATE 0.2 MG/ML VIAL ONE (16:13)
[2019-09-20] MEDS ORDERED: LARYING-O-JET KIT (LTA) ONE (16:13)
[2019-09-20] MEDS ORDERED: PROPOFOL IV EMULSION 10 MG/ML 20 ML VIAL IV ONE (16:13)
[2019-09-20] MEDS ORDERED: ONDANSETRON INJ 2 MG/ML 2 ML VIAL ONE (16:13)
[2019-09-20] MEDS ORDERED: NEOSTIGMINE METHYLSULFATE 5 MG/5 ML SYR ONE (16:13)
--- NOTE | 2019-09-20 16:33 | Post Operative Brief Note ---
Immediate Post Op Note v1 Date of Surgery September 20, 2019 Pre & Post Diagnosis Operation Date: 09/20/19 15:30 Pre-Op Diagnosis: acute appendicitis Post-Op Diagnosis: acute appendicitis I identified the patient and participated in the time-out.: Yes Procedure Operation Date: 09/20/19 15:30 Actual Procedures p Laparoscopic Appendectomy(Not Applicable) - Yady Casey MD Surgeon Yady Casey MD Mink Slicer rn surgical pcu Estimated Blood Loss 5 Findings Consistent with Post-Op Diagnosis acute appendicitis Fluids 700ml Specimens appendix Anesthesia Type General Complications none Disposition Accompanied Patient To Recovery: Yes Disposition: Recovery Room Overlapping Procedure I was immediately available: during the entire case.
[2019-09-20] MEDS: fentaNYL citrate 100 MCG/2 ML VIAL IV PRN ×2 (17:00→17:10)
--- NOTE | 2019-09-20 17:03 | Anesthesiology Progress Note ---
Date of Service September 20, 2019 Anesthesia Post Procedure Vital Signs Vital Signs: Temp Pulse Pulse Pulse Pulse Resp BP 09/20/19 16:50 71 18 09/20/19 16:42 36.6 C 76 21 09/20/19 15:23 36.9 C 76 18 09/20/19 15:14 92 H 20 09/20/19 14:00 79 16 09/20/19 13:35 74 21 108/68 09/20/19 13:34 82 21 09/20/19 13:00 116/63 09/20/19 12:45 82 19 109/65 09/20/19 12:31 74 20 09/20/19 12:30 70 20 110/67 09/20/19 12:19 75 20 09/20/19 12:18 84 28 H 114/66 09/20/19 12:16 82 19 09/20/19 11:45 86 23 09/20/19 11:30 87 18 09/20/19 11:15 77 23 09/20/19 11:00 82 18 09/20/19 10:54 09/20/19 10:53 102 H 20 09/20/19 10:33 36.7 C 95 H 20 144/84 H BP Pulse Ox 09/20/19 16:50 125/91 100 09/20/19 16:42 125/81 99 09/20/19 15:23 120/73 97 09/20/19 15:14 99 09/20/19 14:00 99 09/20/19 13:35 99 09/20/19 13:34 98 09/20/19 13:00 99 09/20/19 12:45 100 09/20/19 12:31 100 09/20/19 12:30 100 09/20/19 12:19 99 09/20/19 12:18 99 09/20/19 12:16 09/20/19 11:45 09/20/19 11:30 09/20/19 11:15 09/20/19 11:00 09/20/19 10:54 97 09/20/19 10:53 09/20/19 10:33 96 Pain Intensity Right Abdomen: Pain Intensity: 1 Transfer of Care Handoff Completed per policy Notes Mental Status: alert / awake / arousable Patient Amnestic to Procedure: Yes Nausea / Vomiting: adequately controlled Pain: adequately controlled Airway Patency, RR, SpO2: stable & adequate BP & HR: stable & adequate Hydration State: stable & adequate Anesthetic Complications: no major complications apparent and Pt Satisfied with anesthetic care
--- NOTE | 2019-09-20 17:41 | Operative Report ---
DATE OF OPERATION: 09/20/2019 PREOPERATIVE DIAGNOSIS: Acute appendicitis. POSTOPERATIVE DIAGNOSIS: Acute appendicitis. OPERATION: Laparoscopic appendectomy. SURGEON: Yady Casey MD. ANESTHESIA: General. ESTIMATED BLOOD LOSS: About 5 mL. FINDINGS: Acute appendicitis. COMPLICATIONS: None. INDICATIONS FOR THE PROCEDURE: This is a 18-year-old female who presented to the ED with 1 day history of abdominal pain, nausea and vomiting. The patient had a CT scan diagnosis of acute appendicitis. I recommended to do the laparoscopic appendectomy, possible open. I did talk to the patient about the benefit, risk, and alternate procedure. I indicated the risks may include but not limited to such as bleeding, infection, injury to the bowel, abscess. The patient and patient's father understand. The patient signed informed consent. They agreed to proceed with the procedure. I answered all questions. DETAILS OF PROCEDURE: We brought the patient to the OR, put the patient in the supine position. The patient received SCD on bilateral legs to prevent DVT. Also, patient received 400 mg of Cipro IV for prophylactic antibiotic. The patient received general anesthesia without difficulty. The abdomen was prepped and draped in routine sterile fashion. After time out, I injected local anesthesia by using 1% lidocaine mixed with 0.5% Marcaine just above the umbilicus. Then, I made a small incision just above the umbilicus, opened fascia and opened peritoneum under direct vision, put a Cali trocar in, connected to CO2 to create pneumoperitoneum, flow rate is 6 liters per minute, pressure not more than 14 mmHg. Once we got a nice pneumoperitoneum, we put a camera in, looked around the abdomen, shows normal finding on the small bowel, large bowel; however, the appendix shows enlarged and was swollen and inflammation, confirmed the diagnosis of acute appendicitis. Then, we put another two 5 mm trocars on the left lower quadrant area, then we mobilized the appendix, used the harmonic to take down appendiceal, rechecked, no active bleeding and then we used a 45 mm Endo-BRIAN staple for transection on the base of the appendix, rechecked the staple line, intact, no leak, no active bleeding. Then we removed the appendix through the catch bag. Then, we reinserted the [place] trocar in, connected to CO2 to create pneumoperitoneum, again looked around the abdomen, no active bleeding, no leak from the staple line. Then we removed all trocars under direct vision. No active bleeding from the trocar sites. Pneumoperitoneum was released. Then, I closed the umbilical incision, fascial layer by using #1 Vicryl [id number] x2, closed subcutaneous layer by using 2-0 Vicryl interruptedly, closed skin by using 4-0 Vicryl continuous running, closed another two 5 mm trocar sites skin only by using 4-0 Vicryl. Then we put the dressing on. The patient tolerated the procedure well. All instrument, needle and sponge count were correct x2 at the end of the case. The patient was transferred to recovery room in stable condition. After the procedure, I did talk to the patient and the patient's family member about the OR finding and the procedure we did, they understand. The specimen was sent to pathology. I attest to the content of the Intraoperative Record and any orders documented therein. Any exception s are noted below.
[2019-09-20] MEDS: CIPROFLOXACIN 400 MG/200 ML BAG IV SCH (18:12)
[2019-09-20] MEDS: OXYCODONE/ACETAMINOPHEN 5mg/325mg TAB PO PRN ×2 (18:18→23:30)
[2019-09-20] MEDS: LACTATED RINGER'S 1,000 ML IV SCH (18:43)
[2019-09-20] MEDS: MoRPHine SULFATE 2 MG/ML CARP IV PRN (18:59)
[2019-09-21] MEDS: MoRPHine SULFATE 2 MG/ML CARP IV PRN ×2 (00:26→04:47)
[2019-09-21] MEDS: CIPROFLOXACIN 400 MG/200 ML BAG IV SCH (05:48)
[2019-09-21] MEDS: OXYCODONE/ACETAMINOPHEN 5mg/325mg TAB PO PRN (05:48)
[2019-09-21 06:00] LABS: Basophils # (auto) 0.01 K/uL (0-0.2); Basophils % (auto) 0.1 %; Hematocrit (blood only) 36.5 % (37-47); Hemoglobin 12.7 g/dL (12.0-16.0); Immature Granulocytes # (auto) 0.04 K/uL (0.00-0.02); Immature Granulocytes % (auto) 0.3 %; Lymphocytes # (auto) 0.99 K/uL (1.2-3.4); Lymphocytes % (auto) 7.7 %; Mean Corpuscular Hemoglobin 30.5 pg (25-34); Mean Corpuscular Hgb Conc 34.8 g/dL (32-36); Mean Corpuscular Volume 87.5 fL (80-100); Monocytes # (auto) 0.45 K/uL (0.11-0.59); Monocytes % (auto) 3.5 %; Neutrophils # (auto) 11.33 K/uL (1.4-6.5); Neutrophils % (auto) 88.4 %; Platelet Count 318 K/uL (130-400); RDW Coefficient of Variation 13.4 % (11.5-14.5); Red Blood Count 4.17 M/uL (4.2-5.4); White Blood Count 12.82 K/uL (4.8-10.8)
[2019-09-21] MEDS: LACTATED RINGER'S 1,000 ML IV SCH (07:45)
[2019-09-21] MEDS ORDERED: ACETAMINOPHEN 325 MG TAB PO PRN (07:55)
--- NOTE | 2019-09-21 08:06 | Anesthesiology Progress Note ---
Date of Service September 21, 2019 Anesthesia Post Procedure Vital Signs Vital Signs: Temp Pulse Pulse Pulse Pulse Resp BP 09/21/19 07:28 36.9 C 60 16 09/21/19 04:00 36.7 C 73 16 09/20/19 23:28 37.1 C 67 16 09/20/19 20:40 36.8 C 85 16 09/20/19 19:39 36.9 C 80 16 09/20/19 18:40 36.6 C 88 16 09/20/19 18:10 36.4 C L 70 20 09/20/19 17:40 36.8 C 66 16 09/20/19 17:30 37.1 C 61 20 09/20/19 17:20 70 17 09/20/19 17:10 65 20 09/20/19 17:00 66 17 09/20/19 16:50 71 18 09/20/19 16:42 36.6 C 76 21 09/20/19 15:23 36.9 C 76 18 09/20/19 15:14 92 H 20 09/20/19 14:00 79 16 09/20/19 13:35 74 21 108/68 09/20/19 13:34 82 21 09/20/19 13:00 116/63 09/20/19 12:45 82 19 109/65 09/20/19 12:31 74 20 09/20/19 12:30 70 20 110/67 09/20/19 12:19 75 20 09/20/19 12:18 84 28 H 114/66 09/20/19 12:16 82 19 09/20/19 11:45 86 23 09/20/19 11:30 87 18 09/20/19 11:15 77 23 09/20/19 11:00 82 18 09/20/19 10:54 09/20/19 10:53 102 H 20 09/20/19 10:33 36.7 C 95 H 20 144/84 H BP Pulse Ox 09/21/19 07:28 108/66 98 09/21/19 04:00 103/59 L 97 09/20/19 23:28 107/66 96 09/20/19 20:40 117/70 95 09/20/19 19:39 118/73 96 09/20/19 18:40 113/63 96 09/20/19 18:10 111/68 95 01/20/20 17:40 118/68 97 09/20/19 17:30 114/63 97 09/20/19 17:20 117/73 97 09/20/19 17:10 122/73 97 09/20/19 17:00 133/84 100 09/20/19 16:50 125/91 100 09/20/19 16:42 125/81 99 09/20/19 15:23 120/73 97 09/20/19 15:14 99 09/20/19 14:00 99 09/20/19 13:35 99 09/20/19 13:34 98 09/20/19 13:00 99 09/20/19 12:45 100 09/20/19 12:31 100 09/20/19 12:30 100 09/20/19 12:19 99 09/20/19 12:18 99 09/20/19 12:16 09/20/19 11:45 09/20/19 11:30 09/20/19 11:15 09/20/19 11:00 09/20/19 10:54 97 09/20/19 10:53 09/20/19 10:33 96 Pain Intensity Right Abdomen: Pain Intensity: 6 Notes Mental Status: alert / awake / arousable Patient Amnestic to Procedure: Yes Nausea / Vomiting: adequately controlled Pain: adequately controlled Airway Patency, RR, SpO2: stable & adequate BP & HR: stable & adequate Hydration State: stable & adequate Anesthetic Complications: no major complications apparent and Pt Satisfied with anesthetic care
[2019-09-21] MEDS ORDERED: IBUPROFEN 600 MG TAB PO PRN (08:44)
[2019-09-21] MEDS ORDERED: OXYCODONE/ACETAMINOPHEN 5mg/325mg TAB PO PRN (08:44)
--- NOTE | 2019-09-21 08:47 | Surgery Progress Note ---
Date of Service September 21, 2019 Assessment & Plan (1) Acute appendicitis: POD # 1 s/p laparoscopic appendectomy -vitals stable, afebrile - leukocytosis improved to 12k (24k preop) - moderate post op pain, preop pain resolved Plan: Advised to avoid IV pain medication if possible. Alternate Percocet and Ibuprofen as needed for pain Clears for breakfast and advance as tolerated ambulate in hallway continue IV cipro until discharge Continue IV fluids until taking PO well will recheck later this morning early afternoon Subjective pain moderate, mostly at incisions and some sharp pelvic pain last night preoperative pain has resolved no nausea or vomiting ambulating only to bathroom not hallways urinating without difficulty did not have much clear liquids for dinner last night Has had IV morphine and Percocet prn pain per EMR. has had 3 doses of IV morphine post-op last dose at 4 this am. Physical Exam Constitutional: WD/WN, vitals as above no acute distress Respiratory: normal respiratory effort Gastrointestinal (Abdomen): Inspection/Auscultation: abdomen normal to inspection; abdomen not distended and + abnormal bowel sounds (hypoactive) Percussion/Palpation: + abdomen tender (at incision sites and RLQ) and abdomen soft; no guarding and abdomen not rigid Skin: no rashes, warm and dry + incision (covered with dressings clean and dry) Psychiatric: Orientation: alert and oriented x 3 Results & Data Vital Signs (Past 12 Hours) Vital Signs Temp Pulse Resp BP Pulse Ox 09/21/19 07:28 36.9 C 60 16 108/66 98 09/21/19 04:00 36.7 C 73 16 103/59 L 97 09/20/19 23:28 37.1 C 67 16 107/66 96 Laboratory Results 09/21/19 09/20/19 09/20/19 Range/Units 04:37 11:59 11:59 WBC 12.82 H D (4.8-10.8) K/uL RBC 4.17 L (4.2-5.4) M/uL Hgb 12.7 (12.0-16.0) g/dL Hct 36.5 L (37-47) % MCV 87.5 (80-100) fL MCH 30.5 (25-34) pg MCHC 34.8 (32-36) g/dL RDW Std Deviation 43.0 (36.4-46.3) fL RDW Coeff of Gertrude 13.4 (11.5-14.5) % Plt Count 318 (130-400) K/uL MPV 11.0 H (7.4-10.4) fL Immature Gran % (Auto) 0.3 % Neut % (Auto) 88.4 % Lymph % (Auto) 7.7 % [place] % (Auto) 3.5 % Eos % (Auto) 0.0 % Baso % (Auto) 0.1 % Immature Gran # (Auto) 0.04 H (0.00-0.02) K/uL Neut # (Auto) 11.33 H (1.4-6.5) K/uL Lymph # (Auto) 0.99 L (1.2-3.4) K/uL [place] # (Auto) 0.45 (0.11-0.59) K/uL Eos # (Auto) 0.00 (0-0.5) K/uL Baso # (Auto) 0.01 (0-0.2) K/uL Sodium (136-145) mmol/L Potassium (3.5-5.1) mmol/L Chloride (98-107) mmol/L Carbon Dioxide (21-32) mmol/L Anion Gap (3-11) BUN (7-18) mg/dl Creatinine (0.6-1.2) mg/dl Est Cr Clr Drug Dosing ml/min Est GFR ( Amer) Est GFR (Non-Af Amer) BUN/Creatinine Ratio (10-20) Glucose (70-99) mg/dl Calcium (8.5-10.1) mg/dl Total Bilirubin (0.2-1) mg/dl AST (15-37) U/L ALT (12-78) U/L Alkaline Phosphatase (45-117) U/L Total Protein (6.4-8.2) gm/dl Albumin (3.4-5.0) gm/dl Globulin (2.5-4.0) gm/dl Albumin/Globulin Ratio (0.9-2) Lipase (73-393) U/L Urine Color Yellow Urine Appearance Clear (Clear) Urine pH 5.5 (4.5-7.5) Ur Specific [place] 1.021 (1.000-1.030) Urine Protein Negative (Negative) Urine Glucose (UA) Negative (Negative) Urine Ketones Trace H (Negative) Urine Blood Negative (Negative) Urine Nitrite Negative (Negative) Urine Bilirubin Negative (Negative) Urine Urobilinogen Negative (Negative) Ur Leukocyte Esterase Negative (Negative) POC Ur Test NEG (NEG) 09/20/19 09/20/19 Range/Units 10:50 10:50 WBC 24.63 H (4.8-10.8) K/uL RBC 5.09 (4.2-5.4) M/uL Hgb 15.0 (12.0-16.0) g/dL Hct 43.7 (37-47) % MCV 85.9 (80-100) fL MCH 29.5 (25-34) pg MCHC 34.3 (32-36) g/dL RDW Std Deviation 41.8 (36.4-46.3) fL RDW Coeff of Gertrude 13.2 (11.5-14.5) % Plt Count 363 (130-400) K/uL MPV 10.5 H (7.4-10.4) fL Immature Gran % (Auto) 0.3 % Neut % (Auto) 80.5 % Lymph % (Auto) 14.0 % [place] % (Auto) 4.1 % Eos % (Auto) 0.9 % Baso % (Auto) 0.2 % Immature Gran # (Auto) 0.07 H (0.00-0.02) K/uL Neut # (Auto) 19.84 H (1.4-6.5) K/uL Lymph # (Auto) 3.45 H (1.2-3.4) K/uL [place] # (Auto) 1.00 H (0.11-0.59) K/uL Eos # (Auto) 0.22 (0-0.5) K/uL Baso # (Auto) 0.05 (0-0.2) K/uL Sodium 137 (136-145) mmol/L Potassium 3.8 (3.5-5.1) mmol/L Chloride 108 H (98-107) mmol/L Carbon Dioxide 23 (21-32) mmol/L Anion Gap 6.0 (3-11) BUN 10 (7-18) mg/dl Creatinine 0.75 (0.6-1.2) mg/dl Est Cr Clr Drug Dosing 112.2 ml/min Est GFR ( Amer) 133.9 Est GFR (Non-Af Amer) 115.6 BUN/Creatinine Ratio 13.3 (10-20) Glucose 85 (70-99) mg/dl Calcium 9.0 (8.5-10.1) mg/dl Total Bilirubin 0.6 (0.2-1) mg/dl AST 17 (15-37) U/L ALT 22 (12-78) U/L Alkaline Phosphatase 75 (45-117) U/L Total Protein 8.2 (6.4-8.2) gm/dl Albumin 4.3 (3.4-5.0) gm/dl Globulin 3.9 (2.5-4.0) gm/dl Albumin/Globulin Ratio 1.1 (0.9-2) Lipase 157 (73-393) U/L Urine Color Urine Appearance (Clear) Urine pH (4.5-7.5) Ur Specific [place] (1.000-1.030) Urine Protein (Negative) Urine Glucose (UA) (Negative) Urine Ketones (Negative) Urine Blood (Negative) Urine Nitrite (Negative) Urine Bilirubin (Negative) Urine Urobilinogen (Negative) Ur Leukocyte Esterase (Negative) POC Ur Test (NEG) (1) Acute appendicitis Acute appendicitis type: unspecified acute appendicitis type Qualified Code(s): K35.80 - Unspecified acute appendicitis
[2019-09-21] MEDS ORDERED: DOCUSATE SODIUM 100 MG CAP PO SCH (09:00)
--- NOTE | 2019-09-21 12:16 | Discharge Summary ---
ADMITTING DIAGNOSIS: Acute appendicitis. DISCHARGE DIAGNOSIS: Acute appendicitis. OPERATION: Laparoscopic appendectomy. SURGEON: Yady Casey MD. DETAILS OF DISCHARGE SUMMARY: This is a 18-year-old female who presented to ED with 1 day history of abdominal pain with nausea and vomiting. The patient had a CT scan diagnosis of acute appendicitis. We took the patient to the OR. We did a laparoscopic appendectomy. The patient tolerated the procedure well, and after the procedure, the patient was transferred to recovery room and later on transferred to regular floor. The patient is doing fine and she tolerated a clear diet and walking on the hallway. PHYSICAL EXAMINATION: VITAL SIGNS: Temperature is 36.9, heart rate is 60, respiratory rate 16, blood pressure 108/66, O2 saturation 98% on room air. GENERAL: The patient is alert, awake, oriented x3. HEENT: Within normal limitation. NEUROLOGIC: Intact. NECK: No JVD. CHEST: Bilateral lung sounds clear. HEART: Normal S1, S2. No murmur. ABDOMEN: Soft, nondistended, mild incision pain. No rebound pain. All incision intact, no drainage and no redness. Bowel sounds positive. EXTREMITIES: No edema. PLAN: The patient wanted to go home today. I gave the patient postop care instructions. The patient understands. I will follow up the patient in 1-2 weeks.
== END 2019-09-21 15:00 | disposition home or self-care (01) ==
LOC: ED 10:18 → ASU 15:14 → 3W 15:14